=== PATIENT | female | born 1985 | race Caucasian/White ===

== ENCOUNTER 2023-06-10 23:18 | Emergency (ER) | payer OTHER, SELFPAY ==
[2023-06-10] MEDS ORDERED: Ketorolac Tromethamine 30 MG (1 mL) VIAL ONE (23:35)
[2023-06-10] MEDS ORDERED: diphenhydrAMINE 25 MG CAP ONE (23:59)
[2023-06-11 00:18] LABS: Hematocrit 31.6 % (34.9-44.5); Hemoglobin 10.5 g/dL (12.0-15.5); Mean Corpuscular HGB CONC 33.2 g/dL (32.0-36.0); Mean Corpuscular Hemoglobin 28.2 pg (27.0-33.0); Mean Corpuscular Volume 84.7 fl (81.6-98.3); Mean Platelet Volume 11.1 fl (7.4-10.4); Platelet Count 222 10x3/uL (150-450); RBC Distribution Width 15.1 % (11.5-14.5); Red Blood Cell (RBC) Count 3.73 10x6/uL (3.90-5.03); White Blood Cell (WBC) Count 4.8 10x3/uL (3.5-10.5)
[2023-06-11 00:29] LABS: ALT (SGPT) 78 U/L (8-55); AST (SGOT) 72 U/L (5-34); Albumin 3.6 g/dL (3.5-5.0); Alkaline Phosphatase 82 U/L (40-110); Anion Gap 11 mmol/L (10-20); BUN (Urea Nitrogen) 10 mg/dL (7.0-18.7); Bilirubin, Total 0.4 mg/dL (0.2-1.2); Calc. Creatinine Clearance 0 mL/min (70-130); Calcium 8.4 mg/dL (7.8-10.44); Carbon Dioxide 22 mmol/L (22-29); Chloride 107 mmol/L (98-107); Estimated GFR 87; Globulin 2.7 g/dL (2.4-3.5); Glucose 100 mg/dL (70-105); Potassium 3.7 mmol/L (3.5-5.1); Protein, Total 6.3 g/dL (6.0-8.3); Sodium 136 mmol/L (136-145)
[2023-06-11 01:00] LABS: MDiff Complete? YES
[2023-06-11 01:04] LABS: Eosinophils 8 % (0-10); Lymphocytes 51 % (21-51); Monocytes 8 % (0-10); Neutrophil 33 % (42-75)
[2023-06-11 01:05] LABS: Platelet Adequacy Comment Appears Adequate
[2023-06-11 01:06] LABS: RBC Morph Comment Within Normal Limits
== END 2023-06-11 03:45 | disposition home or self-care (01) ==
LOC: CSHERS 23:18
DX: F41.1 Generalized anxiety disorder (principal); M72.2 Plantar fascial fibromatosis
CPT/HCPCS: 71045; 71275; 80053; 85025; 85379; 93005; 93970; 96374; J1885